=== PATIENT | female | born 1985 | race Caucasian/White ===

== ENCOUNTER 2018-03-13 15:31 | Emergency (ER) | payer SELFPAY ==
[2018-03-13 15:38] VITALS: BP 137/84
--- NOTE | 2018-03-13 15:52 | ER Document Report ---
HPI - HPI Patient complains to provider of: Right ear pain Onset: Other - Several days Onset/Duration: Sudden Quality of pain: Achy Pain Level: 3 Context: 32-year-old female complaining of right ear pain for several days. No recent upper respiratory infection no fever. Associated Symptoms: None Exacerbated by: Movement Relieved by: Denies - ROS ROS below otherwise negative: Yes Systems Reviewed and Negative: Yes All other systems reviewed and negative - EENT EENT: REPORTS: Ear Pain Past Medical History - General Information source: Patient - Social History Smoking Status: Never Smoker Chew tobacco use (# tins/day): No Frequency of alcohol use: None Drug Abuse: None Lives with: Family Family History: Reviewed & Not Pertinent Patient has suicidal ideation: No Patient has homicidal ideation: No - Medical History Medical History: Negative Renal/ Medical History: Denies: Hx Peritoneal Dialysis Surgical Hx: Negative Vertical Provider Document - CONSTITUTIONAL Agree With Documented VS: Yes Exam Limitations: No Limitations - HEENT HEENT: negative: Conjuctival Injection, Pharyngeal Erythema, Tympanic Membrane Red, Tympanic Membrane Bulging Notes: Swelling, erythema, and tenderness to the right ear canal although I can see the TM which is normal. - NECK Neck: Supple. negative: Lymphadenopathy-Left, Lymphadenopathy-Right Course - Re-evaluation Re-evalutation: 03/13/18 Pharmacy call patient cannot afford the Ciprodex so was changed it to cortisporin drops - Vital Signs Vital signs: Temp Pulse Resp BP Pulse Ox 99.0 F 75 16 137/84 H 97 03/13/18 15:37 03/13/18 15:37 03/13/18 15:37 03/13/18 15:37 03/13/18 15:37 Discharge - Discharge Clinical Impression: Acute right otitis externa Condition: Good Disposition: HOME, SELF-CARE Instructions: Ciprofloxacin ([facility]), Otitis Externa ([facility]), Steroid Medication Additional Instructions: 4 eardrops twice a day to the right ear Warm compress Motrin Tylenol Return for any increased swelling, fever, or pain to the ear Prescriptions: Ciprofloxacin HCl/Dexameth [Ciprodex Otic Suspension 7.5 ml Bottle] 4 drop OT BID 7 Days #1 bottle Forms: Return to Work
== END 2018-03-13 16:11 | disposition home or self-care (01) ==
LOC: ER 15:31
DX: H60.501 Unspecified acute noninfective otitis externa, right ear (principal); H92.01 Otalgia, right ear
CPT/HCPCS: 99282